=== PATIENT | male | born 1960 | race Caucasian/White ===

== ENCOUNTER 2016-04-25 15:17 | Inpatient (IN) | payer MEDICAID ==
[~2016-04-25] VITALS: Ht 170.2 cm; Wt 107.3 kg
[2016-04-25] MEDS ORDERED: OPTIRAY 350 100 ML VIAL HMH IV ONE (15:18)
[2016-04-25] MEDS ORDERED: DILAUDID 1 MG/ML AMP ONE ×3 (17:26→20:48)
[2016-04-25] MEDS ORDERED: SODIUM CHLORIDE 0.9% 1,000 ML ONE (17:26)
[2016-04-25] MEDS ORDERED: ONDANSETRON 4 MG VIAL ONE (17:26)
[2016-04-25] MEDS ORDERED: BISACODYL 10 MG SUPP RECTAL PRN (20:55)
[2016-04-25] MEDS ORDERED: SALINE FLUSH 10 ML FLUSH PRN (20:55)
[2016-04-25] MEDS ORDERED: BISACODYL EC 5 MG TAB PO PRN (20:55)
[2016-04-25] MEDS ORDERED: DEXTROSE 50% SYRINGE 50 ML IV PRN (20:55)
[2016-04-25] MEDS ORDERED: MAG HYDROX 30 ML UDC PO PRN (20:55)
[2016-04-25] MEDS ORDERED: ALU/MAG/SIM 30 ML UDC PO PRN (20:55)
[2016-04-25] MEDS ORDERED: VANCOMYCIN SUSP 250 MG/5 ML UDC PO ONE (21:00)
[2016-04-25] MEDS: SODIUM CHLOR 0.9% W/KCL 20MEQ 1,000 ML IV SCH (22:49)
[2016-04-25 22:53] VITALS: BP_SYST 150; RESP 20; TEMP 98.5
[2016-04-25 22:54] VITALS: Ht 170.2 cm; Wt 107.3 kg
[2016-04-25] MEDS: ONDANSETRON 4 MG VIAL IV PRN (23:11)
[2016-04-25] MEDS: DILAUDID 1 MG/ML AMP IV PRN (23:13)
[2016-04-25 23:35] VITALS: RESP 20
[2016-04-26] MEDS: VANCOMYCIN SUSP 250 MG/5 ML UDC PO SCH ×4 (00:52→18:26)
[2016-04-26] MEDS: ONDANSETRON 4 MG VIAL IV PRN ×4 (03:02→16:52)
[2016-04-26] MEDS: DILAUDID 1 MG/ML AMP IV PRN ×5 (03:02→21:08)
[2016-04-26 03:34] VITALS: BP_SYST 148; RESP 18; TEMP 98.5
[2016-04-26] MEDS: SODIUM CHLORIDE 0.9% FLUSH BAG 500 ML IV SCH (04:19)
[2016-04-26] MEDS: PANTOPRAZOLE 40 MG TAB PO SCH (05:42)
[2016-04-26] MEDS: SALINE FLUSH 10 ML FLUSH SCH ×2 (08:24→21:05)
[2016-04-26] MEDS: ENOXAPARIN 40 MG/0.4 ML SYR SUBQ SCH (08:24)
[2016-04-26] MEDS: SACCHA BOULARDII 250MG CAP PO SCH ×2 (08:24→21:03)
[2016-04-26 08:42] VITALS: BP_SYST 122; RESP 18; TEMP 97.5
[2016-04-26 11:05] VITALS: BP_SYST 132; RESP 20; TEMP 97.1
[2016-04-26] MEDS: SODIUM CHLOR 0.9% W/KCL 20MEQ 1,000 ML IV SCH (12:37)
[2016-04-26 16:29] VITALS: BP_SYST 146; RESP 20; TEMP 97.1
[2016-04-26] MEDS: ACETAMINOPHEN 325 MG TAB PO PRN (18:27)
[2016-04-26 20:30] VITALS: BP_SYST 140; TEMP 98.3
[2016-04-26 23:40] VITALS: BP_SYST 138; RESP 20; TEMP 97.8
[2016-04-27] MEDS: SODIUM CHLOR 0.9% W/KCL 20MEQ 1,000 ML IV SCH ×2 (01:03→15:31)
[2016-04-27] MEDS: ONDANSETRON 4 MG VIAL IV PRN ×4 (01:03→14:11)
[2016-04-27] MEDS: DILAUDID 1 MG/ML AMP IV PRN ×4 (01:04→14:12)
[2016-04-27 03:33] VITALS: BP_SYST 124; RESP 20; TEMP 97.6
[2016-04-27] MEDS: ACETAMINOPHEN 325 MG TAB PO PRN ×5 (03:43→16:55)
[2016-04-27] MEDS: SODIUM CHLORIDE 0.9% FLUSH BAG 500 ML IV SCH (05:14)
[2016-04-27] MEDS: PANTOPRAZOLE 40 MG TAB PO SCH (06:08)
[2016-04-27] MEDS: VANCOMYCIN SUSP 250 MG/5 ML UDC PO SCH ×3 (06:08→12:51)
[2016-04-27 07:11] VITALS: BP_SYST 132; RESP 20; TEMP 97.9
[2016-04-27] MEDS: SALINE FLUSH 10 ML FLUSH SCH (08:00)
[2016-04-27] MEDS: SACCHA BOULARDII 250MG CAP PO SCH (08:11)
[2016-04-27] MEDS: ENOXAPARIN 40 MG/0.4 ML SYR SUBQ SCH (08:13)
[2016-04-27 11:23] VITALS: BP_SYST 130; RESP 20; TEMP 97.8
[2016-04-27 15:38] VITALS: BP_SYST 126; RESP 20; TEMP 97.7
[2016-04-27 18:55] VITALS: BP_SYST 126; RESP 20; TEMP 97.7
== END 2016-04-27 19:15 | disposition home or self-care (01) | DRG 372 ==
LOC: ENRESERVDT → ENRESERV → ENRESERVTM → ER 15:17 → EMR 20:53 → 4NT 22:37 → ENPENDDIS 04-26 15:07 → OBSVTOIN 04-26 15:07
PROVIDERS: ADMIT Family Medicine; ATTEND Family Medicine
DX: A04.7 Enterocolitis due to Clostridium difficile (principal); E87.2 Acidosis; J44.9 Chronic obstructive pulmonary disease, unspecified; G47.33 Obstructive sleep apnea (adult) (pediatric); E11.9 Type 2 diabetes mellitus without complications; Z79.84 Long term (current) use of oral hypoglycemic drugs; I10 Essential (primary) hypertension; E78.5 Hyperlipidemia, unspecified; K21.9 Gastro-esophageal reflux disease without esophagitis; J30.9 Allergic rhinitis, unspecified; M19.90 Unspecified osteoarthritis, unspecified site; F17.210 Nicotine dependence, cigarettes, uncomplicated; E86.0 Dehydration; M54.5 Low back pain; Z86.73 Personal history of transient ischemic attack (TIA), and cerebral infarction without residual deficits; Z79.82 Long term (current) use of aspirin; Z79.01 Long term (current) use of anticoagulants; Z91.19 Patient's noncompliance with other medical treatment and regimen
CPT/HCPCS: 70450; 74177; 80048; 82947; 85025; 93005; 94799; 96361; 96374; 96375; 96376

== ENCOUNTER 2016-04-30 15:34 | Observation (INO) | payer MEDICAID ==
[~2016-04-30] VITALS: Ht 170.2 cm; Wt 105.0 kg
[2016-04-30] MEDS ORDERED: MORPHINE 4 MG/ML SYR ONE (17:02)
[2016-04-30] MEDS ORDERED: ONDANSETRON 4 MG VIAL ONE (17:02)
[2016-04-30] MEDS ORDERED: SODIUM CHLORIDE 0.9% 1,000 ML ONE (17:02)
[2016-04-30] MEDS ORDERED: DILAUDID 1 MG/ML AMP ONE (17:38)
[2016-04-30] MEDS ORDERED: GLUCAGON 1 MG VIAL IM PRN (19:35)
[2016-04-30] MEDS ORDERED: SALINE FLUSH 10 ML FLUSH PRN (19:35)
[2016-04-30] MEDS ORDERED: ALU/MAG/SIM 30 ML UDC PO PRN (19:35)
[2016-04-30] MEDS ORDERED: BISACODYL 10 MG SUPP RECTAL PRN (19:35)
[2016-04-30] MEDS ORDERED: MAG HYDROX 30 ML UDC PO PRN (19:35)
[2016-04-30] MEDS ORDERED: BISACODYL EC 5 MG TAB PO PRN (19:35)
[2016-04-30] MEDS ORDERED: PHARMACY TO DOSE XX ONE (19:35)
[2016-04-30] MEDS ORDERED: DEXTROSE 50% SYRINGE 50 ML IV PRN (19:35)
[2016-04-30] MEDS ORDERED: ONDANSETRON 4 MG VIAL IV PUSH PRN (20:35)
[2016-04-30] MEDS: NEB-ALBUTEROL 2.5 MG/3 ML INH SCH ×2 (21:00→23:00)
[2016-04-30] MEDS: SALINE FLUSH 10 ML FLUSH SCH (21:00)
[2016-04-30] MEDS ORDERED: NITROGLYCERIN SL 0.4 MG TAB SL PRN (21:05)
[2016-04-30] MEDS: ONDANSETRON 4 MG VIAL IV PRN (21:10)
[2016-04-30] MEDS: DILAUDID 1 MG/ML AMP IV PRN (21:11)
[2016-04-30] MEDS: OMNIPAQUE 240 MG/ML, 50 ML PO SCH (22:14)
[2016-04-30] MEDS: SODIUM CHLORIDE 0.9% 1,000 ML IV SCH (22:15)
[2016-04-30] MEDS: VANCOMYCIN SUSP 250 MG/5 ML UDC PO SCH (22:33)
[2016-04-30] MEDS: FAMOTIDINE 20 MG INJ IV SCH (22:33)
[2016-04-30 23:00] VITALS: BP_SYST 124; RESP 18; TEMP 96.7
[2016-04-30] MEDS: NEB-ATROVENT INH SCH (23:55)
[2016-05-01] MEDS: OMNIPAQUE 240 MG/ML, 50 ML PO SCH (00:06)
[2016-05-01 00:42] VITALS: Ht 170.2 cm; Wt 105.0 kg
[2016-05-01 00:44] VITALS: RESP 18
[2016-05-01] MEDS: ONDANSETRON 4 MG VIAL IV PRN ×2 (01:21→05:37)
[2016-05-01] MEDS: DILAUDID 1 MG/ML AMP IV PRN ×2 (01:22→05:38)
[2016-05-01 02:47] VITALS: BP_SYST 130; RESP 20; TEMP 97.1
[2016-05-01] MEDS: NEB-ATROVENT INH SCH ×3 (03:19→11:00)
[2016-05-01] MEDS: NEB-ALBUTEROL 2.5 MG/3 ML INH SCH ×3 (03:19→11:00)
[2016-05-01] MEDS: ACETAMINOPHEN 325 MG TAB PO PRN ×2 (03:40→09:13)
[2016-05-01] MEDS: SODIUM CHLORIDE 0.9% 1,000 ML IV SCH (05:38)
[2016-05-01] MEDS ORDERED: SODIUM CHLORIDE 0.9% FLUSH BAG 500 ML IV SCH (06:00)
[2016-05-01 07:36] VITALS: BP_SYST 122; RESP 18; TEMP 96.8
[2016-05-01] MEDS: SALINE FLUSH 10 ML FLUSH SCH (07:42)
[2016-05-01] MEDS ORDERED: ASPIRIN 81 MG CHEW TAB PO SCH (09:00)
[2016-05-01] MEDS ORDERED: ENOXAPARIN 40 MG/0.4 ML SYR SUBQ SCH (09:00)
[2016-05-01] MEDS: VANCOMYCIN SUSP 250 MG/5 ML UDC PO SCH (09:12)
[2016-05-01] MEDS: FAMOTIDINE 20 MG INJ IV SCH (09:13)
[2016-05-01] MEDS ORDERED: Hydrocodone/APAP 10/325 MG TAB PO PRN (10:00)
[2016-05-01 10:23] VITALS: BP_SYST 122; RESP 18; TEMP 96.8
[2016-05-01 10:57] VITALS: BP_SYST 124; TEMP 96.8
== END 2016-05-01 10:05 | disposition home or self-care (01) ==
LOC: ER 15:34 → EMR 19:31 → ENPENDDIS 19:31 → 4THW 20:49
PROVIDERS: ADMIT Internal Medicine; ATTEND Internal Medicine
CPT/HCPCS: 36415; 71010; 74176; 80053; 81003; 82330; 82553; 82947; 83605; 83690; 83735; 84484; 85025; 87493; 94640; 94799; 96361; 96374; 96375; 99217; 99220